=== PATIENT | female | born 1985 | race Caucasian/White ===

== ENCOUNTER 2017-11-21 15:29 | Emergency (ER) | payer SELFPAY ==
[2017-11-21 16:14] LABS: Absolute Lymphocytes (CBC) 1.7 K/uL (0.7-4.9); Absolute Monocytes 0.6 K/uL (0.1-1.3); Absolute Neutrophil 6.5 K/uL (1.8-8.0); Basophils % 0.4 % (0-1.3); Eosinophils % 1.5 % (0-4.4); Hematocrit 39.9 % (36.0-45.0); MCH 28.3 pg (27.0-35.0); MCV 83.5 fL (80-100); MPV 8.7 fL (7.6-11.3); Monocytes % 6.9 % (3.3-12.3); RBC Red Blood Cell Count 4.77 M/uL (3.86-4.86)
[2017-11-21] MEDS ORDERED: ONDANSETRON 4 MG/2 ML VIAL ONE (16:22)
[2017-11-21] MEDS ORDERED: NA CHLORIDE 0.9% 1,000 ML ONE (16:22)
[2017-11-21 16:25] LABS: Bicarbonate 27 mEq/L (21-31); Glucose Level 95 mg/dL (65-120); Potassium 3.6 mEq/L (3.6-5.0); Sodium Level 139 mEq/L (135-145)
[2017-11-21 16:26] LABS: BUN Blood Urea Nitrogen 9 mg/dL (6-20); Glomerular Filtration Rate > 90 mL/min (=/>90)
[2017-11-21 17:10] LABS: Urine Blood NEGATIVE (NEG); Urine Glucose NEGATIVE (NEG); Urine Protein NEGATIVE (NEG); Urine Specific Gravity >1.030 (1.005-1.030); Urine pH 5.5 (5.0-7.0)
--- NOTE | 2017-11-21 17:20 | EDPHYS ---
Physician Documentation [facility] Name: Duncan Michelle Age: 32 yrs Sex: Female : 1985 Arrival Date: 11/21/2017 Time: 15:32 Bed 18 Private MD: ED Physician Shree Freedman HPI: 11/21 15:48 This 32 yrs old Female presents to ER via Ambulatory with complaints of kav Vomiting. 15:55 This 32 yrs old Female presents to ER via Ambulatory with complaints of kav Vomiting. 15:55 This 32 yrs old Female presents to ER via Ambulatory with complaints of kav Vomiting daily x 1 week. 15:55 The patient presents to the emergency department with nausea, vomiting, 1 times today. kav Onset: The symptoms/episode began/occurred acutely, 7 day(s) ago. Possible causes: . The symptoms are aggravated by nothing. The symptoms are alleviated by nothing. Associated signs and symptoms: Pertinent positives: nausea, vomiting, Pertinent negatives: abdominal pain, anorexia, belching, constipation, diarrhea, dysuria, fever, flatulence, GI bleeding, hematuria, vaginal discharge. Severity of symptoms: At their worst the symptoms were mild just prior to arrival. The patient has not experienced similar symptoms in the past. The patient has not recently seen a physician. patient presents with chief c/o acute onset of nausea/vomiting x 7 days. last at today at 1:00 pm. reports vomit x 1 today. 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 - Family history:: not pertinent. - Social history:: Smoking status: Patient/guardian denies using tobacco. - Hospitalizations: : No recent hospitalization is reported. ROS: 15:58 Constitutional: Negative for fever, chills, and weight loss, Eyes: Negative for injury, kav pain, redness, and discharge, ENT: Negative for injury, pain, and discharge, Neck: Negative for injury, pain, and swelling, Cardiovascular: Negative for chest pain, palpitations, and edema, Respiratory: Negative for shortness of breath, cough, wheezing, and pleuritic chest pain, Back: Negative for injury and pain, : Negative for injury, bleeding, discharge, and swelling, MS/Extremity: Negative for injury and deformity, Skin: Negative for injury, rash, and discoloration, Neuro: Negative for headache, weakness, numbness, tingling, and seizure, Psych: Negative for depression, anxiety, suicide ideation, homicidal ideation, and hallucinations, Allergy/Immunology: Negative for hives, rash, and allergies, Endocrine: Negative for neck swelling, polydipsia, polyuria, polyphagia, and marked weight changes, Hematologic/Lymphatic: Negative for swollen nodes, abnormal bleeding, and unusual bruising. 15:58 Abdomen/GI: Positive for nausea and vomiting. Exam: 15:58 Constitutional: This is a well developed, well nourished patient who is awake, alert, kav and in no acute distress. Head/Face: Normocephalic, atraumatic. Eyes: Pupils equal round and reactive to light, extra-ocular motions intact. Lids and lashes normal. Conjunctiva and sclera are non-icteric and not injected. Cornea within normal limits. Periorbital areas with no swelling, redness, or edema. ENT: Nares patent. No nasal discharge, no septal abnormalities noted. Tympanic membranes are normal and external auditory canals are clear. Oropharynx with no redness, swelling, or masses, exudates, or evidence of obstruction, uvula midline. Mucous membranes moist. Neck: Trachea midline, no thyromegaly or masses palpated, and no cervical lymphadenopathy. Supple, full range of motion without nuchal rigidity, or vertebral point tenderness. No Meningismus. Chest/axilla: Normal chest wall appearance and motion. Nontender with no deformity. No lesions are appreciated. Cardiovascular: Regular rate and rhythm with a normal S1 and S2. No gallops, murmurs, or rubs. Normal PMI, no JVD. No pulse deficits. Respiratory: Lungs have equal breath sounds bilaterally, clear to auscultation and percussion. No rales, rhonchi or wheezes noted. No increased work of breathing, no retractions or nasal flaring. Back: No spinal tenderness. No costovertebral tenderness. Full range of motion. Skin: Warm, dry with normal turgor. Normal color with no rashes, no lesions, and no evidence of cellulitis. MS/ Extremity: Pulses equal, no cyanosis. Neurovascular intact. Full, normal range of motion. Neuro: Awake and alert, GCS 15, oriented to person, place, time, and situation. Cranial nerves II-XII grossly intact. Motor strength 5/5 in all extremities. Sensory grossly intact. Cerebellar exam normal. Normal gait. Psych: Awake, alert, with orientation to person, place and time. Behavior, mood, and affect are within normal limits. 15:58 Abdomen/GI: Inspection: abdomen appears normal, Bowel sounds: normal, in all quadrants, Palpation: abdomen is soft and non-tender, in all quadrants. Vital Signs: 15:45 BP 99 / 70; Pulse 81; Resp 18; Temp 97.6(O); Pulse Ox 98% on R/A; Weight 68.04 kg; hj Height 5 ft. 1 in. (154.94 cm); Pain 5/10; 16:45 BP 94 / 66; Pulse 84; Resp 18; Pulse Ox 98% on R/A; Pain 5/10; em 17:57 BP 106 / 78; Pulse 77; Resp 18; Pulse Ox 99% on R/A; Pain 0/10; em 15:45 Body Mass Index 28.34 (68.04 kg, 154.94 cm) MDM: 15:48 Patient medically screened. [facility] 17:18 Data reviewed: vital signs, nurses notes, lab test result(s). [facility] 11/21 15:55 Order name: Basic Metabolic Panel [facility] 11/21 15:55 Order name: CBC with Diff [facility] 11/21 16:03 Order name: Urine Culture [facility] 11/21 16:16 Order name: CBC with Automated Diff; Complete Time: 16:58 [facility] 11/21 16:58 Interpretation: Within normal limits. [facility] 11/21 15:47 Order name: Urine Test (obtain specimen); Complete Time: 16:15 snw 11/21 16:17 Order name: Urine Dipstick--Ancillary (enter results) nd 11/21 16:17 Order name: Urine --Ancillary (enter results) nd 11/21 16:26 Order name: Basic Metabolic Panel; Complete Time: 16:58 [facility] 11/21 17:10 Order name: Urine --Ancillary; Complete Time: 17:17 EDRI 11/21 17:17 Interpretation: Normal except: USPGR >1.030. [facility] 11/21 17:10 Order name: Urine Dipstick-Ancillary; Complete Time: 17:17 [facility] 11/21 17:17 Interpretation: Within normal limits. [facility] 11/21 15:47 Order name: Urine Dipstick-Ancillary (obtain specimen); Complete Time: 16:15 sn 11/21 15:55 Order name: IV Saline Lock; Complete Time: 16:15 ka 11/21 15:55 Order name: Labs collected and sent; Complete Time: 16:15 [facility] 11/21 15:55 Order name: Urine Dipstick-Ancillary (obtain specimen); Complete Time: 16:15 ka Administered Medications: 16:14 Drug: NS 0.9% 1000 ml Route: IV; Rate: 1 bolus; Site: left antecubital; em 17:15 Follow up: IV Status: Completed infusion; IV Intake: 1000ml em 16:16 Drug: Zofran 4 mg Route: IVP; Site: left antecubital; iw 17:33 Follow up: Response: No adverse reaction; Nausea is decreased em Disposition: 11/22 07:20 Co-signature as Attending Physician, Shree Freedman MD I agree with the assessment and kdr plan of care. Disposition: 11/21/17 17:20 Discharged to Home. Impression: Other viral enteritis. - Condition is Stable. - Discharge Instructions: Food Choices to Help Relieve Diarrhea, Adult, Viral Gastroenteritis. - Prescriptions for Zofran 4 mg Oral Tablet - take 1 tablet by ORAL route every 12 hours As needed; 20 tablet. - Medication Reconciliation Form, Thank You Letter, Antibiotic Education, Prescription Opioid Use form. - Follow up: Private Physician; When: 1 - 2 days; Reason: If symptoms return. - Problem is new. - Symptoms have improved. - Notes: Ensure adequate hydration Signatures: Dispatcher [employer] [facility] Shree Freedman MD MD kdr Therrien, Shelly, TRAVELING STOREKEEPER-C TRAVELING STOREKEEPER-Csnw Sisi Quintanilla FNP TRAVELING STOREKEEPER kav Roberto, Noe, RESEARCH CONTRACTS SUPERVISOR RESEARCH CONTRACTS SUPERVISOR em Tasia Guerra RN RN Shayne Pham RN RN Corrections: (The following items were deleted from the chart) 11/21 16:02 15:55 Urine Test ordered. augusto casas 16:59 16:58 Within normal limits. augusto casas
--- NOTE | 2017-11-21 17:20 | ER ---
Nurse's Notes [facility] Name: Duncan Michelle Age: 32 yrs Sex: Female : 1985 Arrival Date: 11/21/2017 Time: 15:32 Bed 18 Private MD: Diagnosis: Other viral enteritis Presentation: 11/21 15:43 Presenting complaint: Patient states: farideh been vomiting for a week; reports abd pain; hj denies fever and chills;. Transition of care: patient was not received from another setting of care. Onset of symptoms was November 21, 2017. Care prior to arrival: None. 15:43 Method Of Arrival: Ambulatory hj 15:43 Acuity: DESIRAE 3 hj Triage Assessment: 15:45 General: Appears in no apparent distress. uncomfortable, Behavior is calm, cooperative, hj appropriate for age. Pain: Complains of pain in abdomen. GI: Reports lower abdominal pain, upper abdominal pain, nausea, vomiting. 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 - Family history:: not pertinent. - Social history:: Smoking status: Patient/guardian denies using tobacco. - Hospitalizations: : No recent hospitalization is reported. Screenin:01 Abuse screen: Denies threats or abuse. Nutritional screening: No deficits noted. em Tuberculosis screening: No symptoms or risk factors identified. Fall Risk None identified. Assessment: 15:46 GI: Abdomen is non-distended, obese. hj 16:01 General: Appears in no apparent distress. comfortable, Behavior is calm, cooperative, em appropriate for age. General: Reports nausea and vomiting for 5 days Denies fever. Pain: Complains of pain in abdomen Pain does not radiate. Pain currently is 5 out of 10 on a pain scale. Quality of pain is described as crampy. Neuro: Level of Consciousness is awake, alert, obeys commands, Oriented to person, place, time, situation. Cardiovascular: Capillary refill < 3 seconds Patient's skin is warm and dry. Respiratory: Airway is patent Respiratory effort is even, unlabored, Respiratory pattern is regular, symmetrical. GI: Abdomen is round non-distended, Bowel sounds present X 4 quads. Abd is soft X 4 quads Abdomen is tender to palpation X 4 quads. Reports nausea, vomiting, Patient currently denies diarrhea. : Urine is clear. EENT: No signs and/or symptoms were reported regarding the EENT system. Derm: Skin is intact, Skin is pink, warm \T\ dry. Musculoskeletal: Range of motion: intact in all extremities. 16:10 Reassessment: Patient appears in no apparent distress at this time. I agree with above iw assessment from Noe Mejia LVN. 17:00 Reassessment: Patient appears in no apparent distress at this time. Patient and/or em family updated on plan of care and expected duration. Pain level reassessed. Patient is alert, oriented x 3, equal unlabored respirations, skin warm/dry/pink. 17:55 Reassessment: Patient appears in no apparent distress at this time. Patient and/or em family updated on plan of care and expected duration. Pain level reassessed. Patient is alert, oriented x 3, equal unlabored respirations, skin warm/dry/pink. Patient states feeling better. Patient states symptoms have improved. Vital Signs: 15:45 BP 99 / 70; Pulse 81; Resp 18; Temp 97.6(O); Pulse Ox 98% on R/A; Weight 68.04 kg; hj Height 5 ft. 1 in. (154.94 cm); Pain 5/10; 16:45 BP 94 / 66; Pulse 84; Resp 18; Pulse Ox 98% on R/A; Pain 5/10; em 17:57 BP 106 / 78; Pulse 77; Resp 18; Pulse Ox 99% on R/A; Pain 0/10; em 15:45 Body Mass Index 28.34 (68.04 kg, 154.94 cm) ED Course: 15:32 Patient arrived in ED. rg4 15:44 Triage completed. hj 15:46 Arm band placed on left wrist. hj 15:48 Sisi Quintanilla FNP is PHCP. kav 15:48 Shree Freedman MD is Attending Physician. kav 15:58 Noe Mejia LVN is Primary Nurse. em 16:01 Patient has correct armband on for positive identification. Bed in low position. Call em light in reach. Side rails up X2. 16:01 No provider procedures requiring assistance completed. em 17:57 IV discontinued, intact, bleeding controlled, No redness/swelling at site. Pressure em dressing applied. Administered Medications: 16:14 Drug: NS 0.9% 1000 ml Route: IV; Rate: 1 bolus; Site: left antecubital; em 17:15 Follow up: IV Status: Completed infusion; IV Intake: 1000ml em 16:16 Drug: Zofran 4 mg Route: IVP; Site: left antecubital; iw 17:33 Follow up: Response: No adverse reaction; Nausea is decreased em Intake: 17:15 IV: 1000ml; Total: 1000ml. em Outcome: 17:20 Discharge ordered by MD. kav 17:57 Discharged to home ambulatory. em 17:57 Condition: good 17:57 Discharge instructions given to patient, Instructed on discharge instructions, follow up and referral plans. medication usage, Demonstrated understanding of instructions, follow-up care, medications, Prescriptions given X 1. 17:58 Patient left the ED. em Signatures: Sisi Quintanilla, FLAT HAMMERER FLAT HAMMERER Noe Scherer, COMMUTATOR UNDERCUTTER COMMUTATOR UNDERCUTTER em Tasia Guerra, JOVANNY RN iw Shayne Pham, JOVANNY RN [place] rg4 Corrections: (The following items were deleted from the chart) 15:47 15:45 Pulse 81bpm; Resp 18bpm; Pulse Ox 98% RA; Temp 97.6F Oral; 68.04 kg; Height 5 ft. hj 1 in.; BMI: 28.3; Pain 5/10; hj
== END 2017-11-21 17:58 | disposition home or self-care (01) ==
LOC: ER 15:29
DX: A08.39 Other viral enteritis (principal); Z88.1 Allergy status to other antibiotic agents; Z88.2 Allergy status to sulfonamides
CPT/HCPCS: 36415; 80048; 81003; 81025; 85025; 96361; 96374; 99283; J2405; J7030

== ENCOUNTER 2018-01-05 15:01 | Emergency (ER) | payer SELFPAY ==
--- NOTE | 2018-01-05 15:48 | ER ---
Nurse's Notes [facility] Name: Duncan Michelle Age: 32 yrs Sex: Female : 1985 Arrival Date: 01/05/2018 Time: 15:05 Bed 20 Private MD: Diagnosis: Lateral epicondylitis, right elbow Presentation: 01/05 15:17 Presenting complaint: Patient states: "there is some swelling on my right elbow and aa5 I've been seen here for it before but I don't have a primary doctor so I can't follow up". Transition of care: patient was not received from another setting of care. Onset of symptoms was November 2017. Initial Sepsis Screen: Does the patient meet any 2 criteria? No. Patient's initial sepsis screen is negative. Does the patient have a suspected source of infection? No. Patient's initial sepsis screen is negative. Care prior to arrival: None. 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 - Social history:: Smoking status: Patient/guardian denies using tobacco. - Family history:: not pertinent. - Hospitalizations: : No recent hospitalization is reported. Screenin:35 Abuse screen: Denies threats or abuse. Denies injuries from another. Nutritional jl7 screening: No deficits noted. Tuberculosis screening: No symptoms or risk factors identified. Fall Risk None identified. Assessment: 15:30 General: Appears in no apparent distress. uncomfortable, Behavior is calm, cooperative, jl7 appropriate for age. Pain: Complains of pain in right elbow Pain currently is 5 out of 10 on a pain scale. Quality of pain is described as throbbing, Pain began 2-3 days ago. Is continuous. Neuro: Level of Consciousness is awake, alert, obeys commands, Oriented to person, place, time, situation. Cardiovascular: Patient's skin is warm and dry. Respiratory: Airway is patent Respiratory effort is even, unlabored, Respiratory pattern is regular, symmetrical. GI: No signs and/or symptoms were reported involving the gastrointestinal system. : No signs and/or symptoms were reported regarding the genitourinary system. EENT: No signs and/or symptoms were reported regarding the EENT system. Derm: Skin is pink, warm \\T\\ dry. Musculoskeletal: Range of motion: intact in all extremities, Swelling present in right elbow. Vital Signs: 15:18 BP 104 / 66; Pulse 83; Resp 16 S; Temp 97.9(TE); Pulse Ox 98% on R/A; Weight 68.04 kg aa5 (R); Height 5 ft. 1 in. (154.94 cm) (R); Pain 5/10; 15:18 Body Mass Index 28.34 (68.04 kg, 154.94 cm) aa5 ED Course: 15:05 Patient arrived in ED. sb2 15:18 Triage completed. aa5 15:18 Arm band placed on. aa5 15:19 Andre Crane MD is Attending Physician. rn 15:28 Lou Corral RN is Primary Nurse. jl7 15:35 Patient has correct armband on for positive identification. Bed in low position. Call jl7 light in reach. Side rails up X 1. Pulse ox on. NIBP on. 16:00 No provider procedures requiring assistance completed. Patient did not have IV access jl7 during this emergency room visit. Administered Medications: No medications were administered Outcome: 15:48 Discharge ordered by . rn 16:00 Discharged to home ambulatory. jl7 16:00 Condition: stable 16:00 Discharge instructions given to patient, Instructed on discharge instructions, follow up and referral plans. Demonstrated understanding of instructions, follow-up care. 16:01 Patient left the ED. jl7 Signatures: Andre Crane MD MD rn Calderon, Audri, RN RN aa5 Lou Corral RN RN jl7 Charlotte Baumann sb2 Corrections: (The following items were deleted from the chart) 16:00 12:25 General: Appears in no apparent distress. uncomfortable, Behavior is calm, jl7 cooperative, appropriate for age, jl7 16:00 12:25 Pain: Complains of pain in right elbow Pain currently is 5 out of 10 on a pain jl7 scale. Quality of pain is described as throbbing, Pain began 2-3 days ago. Is continuous, jl7 16:00 12:25 Neuro: Level of Consciousness is awake, alert, obeys commands, Oriented to jl7 person, place, time, situation, [facility] 12: Cardiovascular: Patient's skin is warm and dry. 7 [facility] 12:25 Respiratory: Airway is patent Respiratory effort is even, unlabored, Respiratory [facility] pattern is regular, symmetrical, [facility] 12: GI: No signs and/or symptoms were reported involving the gastrointestinal system. [place] [id number] 12: : No signs and/or symptoms were reported regarding the genitourinary system. 7j 12:25 EENT: No signs and/or symptoms were reported regarding the EENT system. [place] [id number] 12: Derm: Skin is pink, warm \\T\\ dry. [place] [id number] 12:25 Musculoskeletal: Range of motion: intact in all extremities, Swelling present in [facility] right elbow [facility]
--- NOTE | 2018-01-05 15:48 | EDPHYS ---
Physician Documentation [facility] Name: Duncan Michelle Age: 32 yrs Sex: Female : 1985 Arrival Date: 01/05/2018 Time: 15:05 Bed 20 Private MD: ED Physician Andre Crane HPI: 01/05 15:46 This 32 yrs old Female presents to ER via Ambulatory with complaints of Elbow rn Injury. 15:46 The patient or guardian complains of pain. The complaints affect the right elbow. rn Onset: The symptoms/episode began/occurred 2 month(s) ago. Modifying factors: The symptoms are alleviated by nothing. the symptoms are aggravated by movement, lifting weight, bending arm. Severity of symptoms: At their worst the symptoms were mild, in the emergency department the symptoms are unchanged. The patient has experienced similar episodes in the past. Reports months of right elbow pain, worse with movement, is right handed and works with repetitive motions, no trauma, no fever, no IV drug use.. 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 - Social history:: Smoking status: Patient/guardian denies using tobacco. - Family history:: not pertinent. - Hospitalizations: : No recent hospitalization is reported. ROS: 15:46 Constitutional: Negative for fever, chills, and weight loss, Eyes: Negative for injury, rn pain, redness, and discharge, Cardiovascular: Negative for chest pain, palpitations, and edema, Respiratory: Negative for shortness of breath, cough, wheezing, and pleuritic chest pain, Abdomen/GI: Negative for abdominal pain, nausea, vomiting, diarrhea, and constipation, MS/Extremity: Negative for injury and deformity, Skin: Negative for injury, rash, and discoloration, Neuro: Negative for headache, weakness, numbness, tingling, and seizure. Exam: 15:46 Constitutional: This is a well developed, well nourished patient who is awake, alert, rn and in no acute distress. MS/ Extremity: Pulses equal, no cyanosis. Neurovascular intact. Full, normal range of motion. Equal circumference. + mild tenderness at lateral condyle. Vital Signs: 15:18 BP 104 / 66; Pulse 83; Resp 16 S; Temp 97.9(TE); Pulse Ox 98% on R/A; Weight 68.04 kg aa5 (R); Height 5 ft. 1 in. (154.94 cm) (R); Pain 5/10; 15:18 Body Mass Index 28.34 (68.04 kg, 154.94 cm) aa5 MDM: 15:19 Patient medically screened. rn 15:46 Differential diagnosis: tendonitis. Data reviewed: vital signs, nurses notes, and as a rn result, I will discharge patient. Counseling: I had a detailed discussion with the patient and/or guardian regarding: the historical points, exam findings, and any diagnostic results supporting the discharge/admit diagnosis, the need for outpatient follow up, to return to the emergency department if symptoms worsen or persist or if there are any questions or concerns that arise at home. Special discussion: I discussed with the patient/guardian in detail that at this point there is no indication for admission to the hospital. It is understood, however, that if the symptoms persist or worsen the patient needs to return immediately for re-evaluation. Administered Medications: No medications were administered Disposition: 01/05/18 15:48 Discharged to Home. Impression: Lateral epicondylitis, right elbow. - Condition is Stable. - Discharge Instructions: Tennis Elbow, Tendinitis. - Medication Reconciliation Form, Thank You Letter, Antibiotic Education, Prescription Opioid Use form. - Follow up: Private Physician; When: As needed; Reason: Recheck today's complaints, Re-evaluation by your physician. - Problem is chronic. - Symptoms are unchanged. Signatures: Andre Crane MD MD rn Calderon, Audri RN RN aa5 Lou Corral RN RN jl7 Corrections: (The following items were deleted from the chart) 16:01 15:48 01/05/2018 15:48 Discharged to Home. Impression: Lateral epicondylitis, right jl7 elbow. Condition is Stable. Forms are Medication Reconciliation Form, Thank You Letter, Antibiotic Education, Prescription Opioid Use. Follow up: Private Physician; When: As needed; Reason: Recheck today's complaints, Re-evaluation by your physician. Problem is chronic. Symptoms are unchanged. rn
== END 2018-01-05 16:01 | disposition home or self-care (01) ==
LOC: ER 15:01
DX: M77.11 Lateral epicondylitis, right elbow (principal); Z88.1 Allergy status to other antibiotic agents; Z88.2 Allergy status to sulfonamides
CPT/HCPCS: 99283

== ENCOUNTER 2018-02-11 08:42 | Emergency (ER) | payer SELFPAY ==
--- NOTE | 2018-02-11 09:38 | EDPHYS ---
Physician Documentation [facility] Name: Duncan Michelle Age: 32 yrs Sex: Female : 1985 Arrival Date: 02/11/2018 Time: 08:44 Bed 18 Private MD: ED Physician Joseph Jha HPI: 02/11 09:32 This 32 yrs old Female presents to ER via Ambulatory with complaints of hector Drainage From Ear. 09:32 The patient presents with drainage, pain. The complaints affect the right ear. Onset: hector The symptoms/episode began/occurred 3 day(s) ago. Modifying factors: The symptoms are alleviated by nothing, the symptoms are aggravated by nothing. Associated signs and symptoms: The patient has no apparent associated signs or symptoms. Severity of symptoms: At their worst the symptoms were. The patient has not experienced similar symptoms in the past. Historical: - Allergies: 08:58 Bactrim; ss - Home Meds: 08:58 None [Active]; ss - PMHx: 08:58 Asthma; ss - PSHx: 08:58 Ear Tubes; exploratory lap "to check fallopian tubes"; ss - Immunization history:: Adult Immunizations up to date. - Social history:: Smoking status: Patient/guardian denies using tobacco. - Ebola Screening: : Patient denies exposure to infectious person Patient denies travel to an Ebola-affected area in the 21 days before illness onset. - Family history:: not pertinent. ROS: 09:32 Constitutional: Negative for fever, chills, and weight loss, Eyes: Negative for injury, hector pain, redness, and discharge, Neck: Negative for injury, pain, and swelling, Cardiovascular: Negative for chest pain, palpitations, and edema, Respiratory: Negative for shortness of breath, cough, wheezing, and pleuritic chest pain, Abdomen/GI: Negative for abdominal pain, nausea, vomiting, diarrhea, and constipation, Back: Negative for injury and pain, : Negative for injury, bleeding, discharge, and swelling, MS/Extremity: Negative for injury and deformity, Skin: Negative for injury, rash, and discoloration, Neuro: Negative for headache, weakness, numbness, tingling, and seizure. 09:32 ENT: Positive for drainage from ear(s), ear pain. Exam: 09:32 Constitutional: This is a well developed, well nourished patient who is awake, alert, hector and in no acute distress. Head/Face: Normocephalic, atraumatic. Eyes: Pupils equal round and reactive to light, extra-ocular motions intact. Lids and lashes normal. Conjunctiva and sclera are non-icteric and not injected. Cornea within normal limits. Periorbital areas with no swelling, redness, or edema. Neck: Trachea midline, no thyromegaly or masses palpated, and no cervical lymphadenopathy. Supple, full range of motion without nuchal rigidity, or vertebral point tenderness. No Meningismus. Chest/axilla: Normal chest wall appearance and motion. Nontender with no deformity. No lesions are appreciated. Cardiovascular: Regular rate and rhythm with a normal S1 and S2. No gallops, murmurs, or rubs. Normal PMI, no JVD. No pulse deficits. Respiratory: Lungs have equal breath sounds bilaterally, clear to auscultation and percussion. No rales, rhonchi or wheezes noted. No increased work of breathing, no retractions or nasal flaring. Abdomen/GI: Soft, non-tender, with normal bowel sounds. No distension or tympany. No guarding or rebound. No evidence of tenderness throughout. Back: No spinal tenderness. No costovertebral tenderness. Full range of motion. Pelvic Exam: Normal external genitalia. Speculum exam with closed cervical os, no discharge or bleeding noted. Bimanual exam with normal adnexa, no adnexal or cervical motion tenderness. Normal uterus. Female : Normal external genitalia. Skin: Warm, dry with normal turgor. Normal color with no rashes, no lesions, and no evidence of cellulitis. MS/ Extremity: Pulses equal, no cyanosis. Neurovascular intact. Full, normal range of motion. Neuro: Awake and alert, GCS 15, oriented to person, place, time, and situation. Cranial nerves II-XII grossly intact. Motor strength 5/5 in all extremities. Sensory grossly intact. Cerebellar exam normal. Normal gait. Psych: Awake, alert, with orientation to person, place and time. Behavior, mood, and affect are within normal limits. 09:32 ENT: TM's: dullness, erythema, loss of bony landmarks, rupture, on the right, with purulent discharge. Vital Signs: 08:58 BP 105 / 66; Pulse 76; Resp 16; Temp 97.8(TE); Pulse Ox 97% on R/A; Weight 68.04 kg; ss Height 5 ft. 1 in. (154.94 cm); Pain 0/10; 08:58 Body Mass Index 28.34 (68.04 kg, 154.94 cm) ss MDM: 08:52 Patient medically screened. [facility] 09:32 Data reviewed: vital signs, nurses notes. [facility] Administered Medications: 10:14 Drug: Augmentin 875 mg Route: PO; aj1 10:27 Follow up: Response: No adverse reaction aj1 10:14 Drug: Rocephin (cefTRIAXone) 1 grams Route: IM; Site: left gluteus; aj1 10:27 Follow up: Response: No adverse reaction aj1 Disposition: 02/11/18 09:38 Discharged to Home. Impression: Otitis externa, Otitis media, unspecified, right ear. - Condition is Stable. - Discharge Instructions: Ear Drops, Adult, Otitis Media, Adult, Otitis Media, Adult, [id number], Ear Drops, Adult, [id number]. - Prescriptions for Augmentin 875- 125 mg Oral Tablet - take 1 tablet by ORAL route every 12 hours for 10 days; 20 tablet. Cortisporin- TC 3.3-3-10-0.5 mg/mL Otic Suspension - instill 4 drop by OTIC route every 6 hours; 1 bottle. Tylenol- Codeine #3 300-30 mg Oral Tablet - take 2 tablet by ORAL route every 6 hours As needed; 30 tablet. - Medication Reconciliation Form, Thank You Letter, Antibiotic Education, Prescription Opioid Use form. - Follow up: Private Physician; When: 2 - 3 days; Reason: Recheck today's complaints, Continuance of care, Re-evaluation by your physician. Follow up: Libertad Clifford MD; When: 2 - 3 days; Reason: Recheck today's complaints, Continuance of care, Re-evaluation by your physician. - Problem is new. - Symptoms have improved. Signatures: Diamond Phillips RN RN aj1 Joseph Jha MD MD cha Smirch, Shelby, RN RN ss Corrections: (The following items were deleted from the chart) 10:33 09:38 02/11/2018 09:38 Discharged to Home. Impression: Otitis externa; Otitis media, ss unspecified, right ear. Condition is Stable. Forms are Medication Reconciliation Form, Thank You Letter, Antibiotic Education, Prescription Opioid Use. Follow up: Private Physician; When: 2 - 3 days; Reason: Recheck today's complaints, Continuance of care, Re-evaluation by your physician. Follow up: Libertad Clifford; When: 2 - 3 days; Reason: Recheck today's complaints, Continuance of care, Re-evaluation by your physician. Problem is new. Symptoms have improved. hector
--- NOTE | 2018-02-11 09:38 | ER ---
Nurse's Notes [facility] Name: Duncan Michelle Age: 32 yrs Sex: Female : 1985 Arrival Date: 02/11/2018 Time: 08:44 Bed 18 Private MD: Diagnosis: Otitis externa;Otitis media, unspecified, right ear Presentation: 02/11 08:54 Presenting complaint: Patient states: brown-samantha drainage to R ear since yesterday, ss worse this AM. Denies pain/ fever. Transition of care: patient was not received from another setting of care. Onset of symptoms was February 10, 2018. Risk Assessment: Do you want to hurt yourself or someone else? Patient reports no desire to harm self or others. Initial Sepsis Screen: Does the patient meet any 2 criteria? No. Patient's initial sepsis screen is negative. Does the patient have a suspected source of infection? No. Patient's initial sepsis screen is negative. Care prior to arrival: None. 08:54 Method Of Arrival: Ambulatory ss 08:54 Acuity: DESIRAE 5 ss Historical: - Allergies: 08:58 Bactrim; ss - Home Meds: 08:58 None [Active]; ss - PMHx: 08:58 Asthma; ss - PSHx: 08:58 Ear Tubes; exploratory lap "to check fallopian tubes"; ss - Immunization history:: Adult Immunizations up to date. - Social history:: Smoking status: Patient/guardian denies using tobacco. - Ebola Screening: : Patient denies exposure to infectious person Patient denies travel to an Ebola-affected area in the 21 days before illness onset. - Family history:: not pertinent. Screenin:59 Abuse screen: Denies threats or abuse. Denies injuries from another. Nutritional aj1 screening: No deficits noted. Tuberculosis screening: No symptoms or risk factors identified. Assessment: 08:59 General: Appears in no apparent distress. comfortable, Behavior is calm, cooperative, aj1 appropriate for age. Pain: Denies pain. Neuro: Level of Consciousness is awake, alert, obeys commands. Cardiovascular: Patient's skin is warm and dry. Respiratory: Airway is patent Respiratory effort is even, unlabored, Respiratory pattern is regular, symmetrical. GI: No signs and/or symptoms were reported involving the gastrointestinal system. : No signs and/or symptoms were reported regarding the genitourinary system. EENT: Reports drainage from ear. Denies pain, fever. Derm: No signs and/or symptoms reported regarding the dermatologic system. Skin is pink, warm \\T\\ dry. normal. Musculoskeletal: No signs and/or symptoms reported regarding the musculoskeletal system. Circulation, motion, and sensation intact. Vital Signs: 08:58 BP 105 / 66; Pulse 76; Resp 16; Temp 97.8(TE); Pulse Ox 97% on R/A; Weight 68.04 kg; ss Height 5 ft. 1 in. (154.94 cm); Pain 0/10; 08:58 Body Mass Index 28.34 (68.04 kg, 154.94 cm) ED Course: 08:44 Patient arrived in ED. as 08:52 Joseph Jha MD is Attending Physician. [facility] 08:55 Triage completed. 08:58 Diamond Phillips RN is Primary Nurse. aj1 08:58 Arm band placed on right wrist. 08:59 Patient has correct armband on for positive identification. Bed in low position. Call aj1 light in reach. Side rails up X 1. 08:59 No provider procedures requiring assistance completed. aj1 09:38 Libertad Clifford MD is Referral Physician. [facility] 10:30 Patient did not have IV access during this emergency room visit. ss Administered Medications: 10:14 Drug: Augmentin 875 mg Route: PO; aj1 10:27 Follow up: Response: No adverse reaction aj1 10:14 Drug: Rocephin (cefTRIAXone) 1 grams Route: IM; Site: left gluteus; aj1 10:27 Follow up: Response: No adverse reaction aj1 Outcome: 09:38 Discharge ordered by . [facility] 10:30 Discharged to home ambulatory. 10:30 Condition: good 10:30 Discharge instructions given to patient, Instructed on discharge instructions, follow up and referral plans. medication usage, Demonstrated understanding of instructions, follow-up care, medications, Prescriptions given X 3. 10:33 Patient left the ED. Signatures: Diamond Phillips, RN RN aj1 Joseph Jha MD MD cha Martinez, Amelia as Smirch, Shelby, RN RN
[2018-02-11] MEDS ORDERED: CEFTRIAXONE 1000 MG/VIAL ONE (10:05)
[2018-02-11] MEDS ORDERED: LIDOCAINE 1% MPF 2 ML AMPULE ONE (10:06)
[2018-02-11] MEDS ORDERED: AMOX/K CLAV 875 MG TAB ONE (10:06)
== END 2018-02-11 10:33 | disposition home or self-care (01) ==
LOC: ER 08:42
DX: H60.91 Unspecified otitis externa, right ear (principal); H66.91 Otitis media, unspecified, right ear; Z88.1 Allergy status to other antibiotic agents
CPT/HCPCS: 96372; 99283; J2001

== ENCOUNTER 2018-02-23 16:30 | Emergency (ER) | payer SELFPAY ==
[2018-02-23 17:34] LABS: Absolute Lymphocytes (CBC) 1.9 K/uL (0.7-4.9); Absolute Monocytes 0.7 K/uL (0.1-1.3); Basophils % 0.5 % (0-1.3); Eosinophils % 1.7 % (0-4.4); Hematocrit 36.3 % (36.0-45.0); Lymphocytes % 19.5 % (15.3-44.8); MCH 28.1 pg (27.0-35.0); MCV 83.6 fL (80-100); MPV 8.1 fL (7.6-11.3); Monocytes % 7.5 % (3.3-12.3); RBC Red Blood Cell Count 4.34 M/uL (3.86-4.86)
[2018-02-23 17:40] LABS: Protime INR 1.04
[2018-02-23 17:53] LABS: Urine Blood 2+ (NEG); Urine Glucose NEGATIVE (NEG); Urine Protein NEGATIVE (NEG); Urine Specific Gravity >1.030 (1.005-1.030); Urine pH 5.5 (5.0-7.0)
[2018-02-23 17:53] LABS: Potassium 3.5 mmol/L (3.5-5.1)
--- NOTE | 2018-02-23 19:43 | EDPHYS ---
Physician Documentation [facility] Name: Duncan Michelle Age: 32 yrs Sex: Female : 1985 Arrival Date: 02/23/2018 Time: 16:33 Bed 28 Private MD: None, None ED Physician Shree Freedman HPI: 02/23 17:10 This 32 yrs old Female presents to ER via Ambulatory with complaints of cp Vaginal Bleeding. 17:10 The patient presents with vaginal bleeding that is with clots. cp 17:10 Onset: The symptoms/episode began/occurred 10 day(s) ago. Associated signs and cp symptoms: Pertinent negatives: dysuria, fever, urinary frequency. Severity of symptoms: in the emergency department the symptoms have improved, mildly. 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 - Social history:: Smoking status: Patient/guardian denies using tobacco, Patient/guardian denies using alcohol. - Ebola Screening: : Patient negative for fever greater than or equal to 101.5 degrees Fahrenheit, and additional compatible Ebola Virus Disease symptoms Patient denies exposure to infectious person Patient denies travel to an Ebola-affected area in the 21 days before illness onset. ROS: 17:15 Constitutional: Negative for body aches, chills, fever, poor PO intake. cp 17:15 Eyes: Negative for injury, pain, redness, and discharge. cp 17:15 ENT: Negative for drainage from ear(s), ear pain, sore throat, difficulty swallowing, difficulty handling secretions. 17:15 Cardiovascular: Negative for chest pain, edema, palpitations. 17:15 Respiratory: Negative for cough, shortness of breath, wheezing. 17:15 Abdomen/GI: Positive for abdominal cramps, Negative for nausea, vomiting, and diarrhea, black/tarry stool, rectal bleeding. 17:15 Back: Negative for radiated pain. 17:15 : Positive for vaginal bleeding, Negative for urinary symptoms. 17:15 Skin: Negative for cellulitis, rash. 17:15 Neuro: Negative for altered mental status, headache, syncope, near syncope, weakness. 17:15 All other systems are negative. Exam: 17:20 Constitutional: The patient appears in no acute distress, alert, awake, non-toxic, well cp developed, well nourished. 17:20 Head/Face: Normocephalic, atraumatic. Eyes: Pupils equal round and reactive to light, cp extra-ocular motions intact. Lids and lashes normal. Conjunctiva and sclera are non-icteric and not injected. Cornea within normal limits. Periorbital areas with no swelling, redness, or edema. ENT: Nares patent. No nasal discharge, no septal abnormalities noted. Tympanic membranes are normal and external auditory canals are clear. Oropharynx with no redness, swelling, or masses, exudates, or evidence of obstruction, uvula midline. Mucous membranes moist. Chest/axilla: Normal chest wall appearance and motion. Nontender with no deformity. No lesions are appreciated. Cardiovascular: Regular rate and rhythm with a normal S1 and S2. No gallops, murmurs, or rubs. Normal PMI, no JVD. No pulse deficits. Respiratory: Lungs have equal breath sounds bilaterally, clear to auscultation and percussion. No rales, rhonchi or wheezes noted. No increased work of breathing, no retractions or nasal flaring. 17:20 Abdomen/GI: Inspection: abdomen appears normal, Bowel sounds: active, all quadrants, Palpation: soft, in all quadrants, mild abdominal tenderness, in the right lower quadrant and left lower quadrant, rebound tenderness, is not appreciated, voluntary guarding, is not appreciated, involuntary guarding, is not appreciated. 17:20 Back: pain, is absent, ROM is normal. 17:20 Skin: cellulitis, is not appreciated, no rash present. 17:20 Neuro: Orientation: to person, place \\T\\ time. Mentation: lucid, able to follow commands, Cerebellar function: is grossly normal, Motor: moves all fours, strength is normal, Sensation: no obvious gross deficits. 18:20 : Pelvic Exam: External exam: is normal, Speculum exam: mild bleeding, no cervicitis, cp os that is closed, no tissue in cervix is seen, no tissue in vagina is seen, bimanual exam reveals cervical motion tenderness, os that is closed, uterine tenderness, right adnexal tenderness, left adnexal tenderness, no adnexal mass on right, no adnexal mass on left, Conchita, RN present. Sexual behavior: the patient is sexually active. Vital Signs: 16:37 BP 111 / 71; Pulse 76; Resp 18; Temp 97.9(TE); Pulse Ox 98% on R/A; Weight 68.04 kg; hj Height 5 ft. 1 in. (154.94 cm); Pain 3/10; 17:35 BP 109 / 71 Supine; Pulse 84 RA; rk2 17:35 BP 120 / 72 Sitting; Pulse 89; rk2 17:35 BP 124 / 76; Pulse 81; rk2 19:56 BP 131 / 86; Pulse 85; Resp 18; Pulse Ox 100% on R/A; tl3 16:37 Body Mass Index 28.34 (68.04 kg, 154.94 cm) MDM: 16:59 Patient medically screened. 17:00 Differential diagnosis: ectopic , endometriosis, menorrhea, ovarian cyst, cp pelvic inflammatory disease. 19:33 Physician consultation: Andria Gunn MD was called at 19:34, was contacted at 19:34, regarding patient's condition, outpatient follow-up, next week. 19:34 ED course: VSS. Spoke with DR Gunn who recommends repeat 48 hour beta-hcg, discharge to home with threatened miscarriage precautions and continued monitoring. 19:40 Data reviewed: vital signs, nurses notes, lab test result(s), radiologic studies, plain cp films, and as a result, I will discharge patient. 02/23 17:07 Order name: Quantitative Hcg; Complete Time: 18:04 02/23 17:07 Order name: Basic Metabolic Panel; Complete Time: 18:04 02/23 17:07 Order name: CBC with Diff; Complete Time: 18:04 02/23 18:24 Interpretation: Reviewed. 02/23 17:07 Order name: Type And Screen; Complete Time: 18:24 02/23 18:24 Interpretation: Reviewed. 02/23 17:07 Order name: PT-INR; Complete Time: 18:04 02/23 17:07 Order name: Ptt, Activated; Complete Time: 18:04 cp 02/23 17:07 Order name: Orthostatics; Complete Time: 17:39 cp 02/23 17:07 Order name: Urine Dipstick-Ancillary (obtain specimen); Complete Time: 17:08 cp 02/23 17:07 Order name: Urine Test (obtain specimen); Complete Time: 17:08 cp 02/23 17:07 Order name: IV Saline Lock; Complete Time: 17:27 cp 02/23 17:07 Order name: Labs collected and sent; Complete Time: 17:27 cp 02/23 17:18 Order name: Urine Dipstick--Ancillary (enter results); Complete Time: 18:04 sp 02/23 17:18 Order name: Test Urine - POC; Complete Time: 18:04 sp 02/23 18:05 Order name: US Transvaginal Ob 02/23 17:07 Order name: NPO; Complete Time: 17:08 cp 02/23 17:07 Order name: Pelvic Exam Setup; Complete Time: 17:42 cp Administered Medications: No medications were administered Disposition: 02/23/18 19:43 Discharged to Home. Impression: Threatened . - Condition is Stable. - Discharge Instructions: Medicines During , Threatened Miscarriage, Pelvic Rest. - Prescriptions for Vitamin 27- 0.8 mg Oral Tablet - take 1 tablet by ORAL route once daily; 60 tablet. - Medication Reconciliation Form, Thank You Letter, Antibiotic Education, Prescription Opioid Use, Work release form form. - Follow up: Andria Gunn MD; When: 48 Hours; Reason: Repeat Beta-HCG (48 Hours), or return to emergency department. - Problem is new. - Symptoms have improved. Addendum: 02/25/2018 23:03 Co-signature as Attending Physician, Shree Freedman MD I agree with the assessment and k dr plan of care. Signatures: Dispatcher [employer] EDNH Shree Freedman MD MD kdr Shayne Pham RN RN Joseph Salas PA PA cp Lowrey, Tammy, RN RN tl3 Corrections: (The following items were deleted from the chart) 02/23 20:05 19:43 02/23/2018 19:43 Discharged to Home. Impression: Threatened . Condition tl3 is Stable. Forms are Medication Reconciliation Form, Thank You Letter, Antibiotic Education, Prescription Opioid Use. Follow up: Andria Gunn; When: 48 Hours; Reason: Repeat Beta-HCG (48 Hours), or return to emergency department. Problem is new. Symptoms have improved. cp
--- NOTE | 2018-02-23 19:43 | ER ---
Nurse's Notes [facility] Name: Duncan Michelle Age: 32 yrs Sex: Female : 1985 Arrival Date: 02/23/2018 Time: 16:33 Bed 28 Private MD: None, None Diagnosis: Threatened Presentation: 02/23 16:33 Presenting complaint: Patient states: my period was late like a week late, of last last week started my period and farideh been bleeding for 10 days now, now my stomach is cramping; reports nausea; reports bright red with clots, heavy flow; denies fever and chills;. Transition of care: patient was not received from another setting of care. Onset of symptoms was February 23, 2018. Risk Assessment: Do you want to hurt yourself or someone else? Patient reports no desire to harm self or others. Initial Sepsis Screen: Does the patient meet any 2 criteria? No. Patient's initial sepsis screen is negative. Does the patient have a suspected source of infection? No. Patient's initial sepsis screen is negative. Care prior to arrival: None. 16:33 Method Of Arrival: Ambulatory 16:33 Acuity: DESIRAE 3 hj Triage Assessment: 16:36 General: Appears in no apparent distress. uncomfortable, Behavior is calm, cooperative, hj appropriate for age. Pain: Complains of pain in abdomen Pain currently is 3 out of 10 on a pain scale. : Reports vaginal bleeding that is bright red, with clots, heavy flow. 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 - Social history:: Smoking status: Patient/guardian denies using tobacco, Patient/guardian denies using alcohol. - Ebola Screening: : Patient negative for fever greater than or equal to 101.5 degrees Fahrenheit, and additional compatible Ebola Virus Disease symptoms Patient denies exposure to infectious person Patient denies travel to an Ebola-affected area in the 21 days before illness onset. Screenin:37 Abuse screen: Denies threats or abuse. Denies injuries from another. Nutritional hj screening: No deficits noted. Tuberculosis screening: No symptoms or risk factors identified. Fall Risk None identified. Assessment: 16:38 : Vaginal discharge is. hj 17:30 Reassessment: Patient appears in no apparent distress at this time. No changes from rk2 previously documented assessment. Patient and/or family updated on plan of care and expected duration. Pain level reassessed. 18:20 Reassessment: Pelvic exam completed by provider. rk2 18:25 Reassessment: Pt. taken to US. rk2 18:59 Reassessment: Returned from US. rk2 19:56 Reassessment: Patient appears in no apparent distress at this time. No changes from tl3 previously documented assessment. Patient and/or family updated on plan of care and expected duration. Pain level reassessed. Rick Mandujano at bedside discussing POC. Vital Signs: 16:37 BP 111 / 71; Pulse 76; Resp 18; Temp 97.9(TE); Pulse Ox 98% on R/A; Weight 68.04 kg; hj Height 5 ft. 1 in. (154.94 cm); Pain 3/10; 17:35 BP 109 / 71 Supine; Pulse 84 RA; rk2 17:35 BP 120 / 72 Sitting; Pulse 89; rk2 17:35 BP 124 / 76; Pulse 81; rk2 19:56 BP 131 / 86; Pulse 85; Resp 18; Pulse Ox 100% on R/A; tl3 16:37 Body Mass Index 28.34 (68.04 kg, 154.94 cm) ED Course: 16:33 Patient arrived in ED. mr 16:33 None, None is Private Physician. mr 16:36 Triage completed. hj 16:37 Arm band placed on right wrist. hj 16:38 Patient has correct armband on for positive identification. Placed in gown. Bed in low hj position. Call light in reach. Side rails up X 1. 16:44 Conchita Nesbitt, JOVANNY is Primary Nurse. rk2 16:59 Joseph Mandujano PA is PHCP. cp 16:59 Shree Freedman MD is Attending Physician. cp 18:21 Assist provider with pelvic exam:. rk2 18:40 Ultrasound completed. Patient tolerated well. Notified SENIOR APPLICATIONS ANALYST/PA PAGE. sg3 18:40 US Transvaginal Ob Sent. rk2 19:42 Andria Gunn MD is Referral Physician. cp 19:56 IV discontinued, intact, bleeding controlled, No redness/swelling at site. Pressure tl3 dressing applied. Administered Medications: No medications were administered Outcome: 19:43 Discharge ordered by MD. cp 19:56 Discharged to home ambulatory. tl3 19:56 Condition: stable 19:56 Discharge instructions given to patient, Instructed on discharge instructions, follow up and referral plans. medication usage, Demonstrated understanding of instructions, follow-up care, medications, Prescriptions given X 1. 20:05 Patient left the ED. tl3 Signatures: Dispatcher [employer] EDMO Anastasia Bailey Henry, RN RN hj Joseph Mandujano PA PA cp Godinez, Sarah sg3 Conchita Nesbitt RN RN rk2 Shirin Morales, RN RN tl3 Corrections: (The following items were deleted from the chart) 16:39 16:37 Pulse 76bpm; Resp 18bpm; Pulse Ox 98% RA; Temp 97.9F Temporal; 68.04 kg; Height 5 hj ft. 1 in.; BMI: 28.3; Pain 3/10; hj 18:58 18:58 In radiology for Transvaginal Ob+US.MARCI.LIS. EDMO sg3
--- NOTE | 2018-02-23 19:50 | RAD REPORT ---
EXAM DESCRIPTION: US - Transvaginal OB - 02/23/2018 6:58 pm CLINICAL HISTORY: VAGINAL BLEEDING COMPARISON: Transvaginal Study Probe dated 07/11/2016; Transvaginal Study Probe dated 05/11/2016 FINDINGS: The uterus measures 6.9 x 4.5 x 3.7 cm. Endometrium measures 4 mm and is heterogenous in a ppearance and no normal IUP components are visualized. Mild heterogenous material seen in the lower u terine segment/cervix. These may represent blood products. Mild to moderate free fluid is seen in the pelvis. Maternal adnexa showed no worrisome finding. Both ovaries are normal in size, shape and echotexture w ith normal Doppler blood flow. IMPRESSION: In the setting of an elevated HCG, the above findings with indicate a of unkno wn location.Advise short interval follow-up serial HCG measurements and follow-up ultrasound in 7-10 days.
== END 2018-02-23 20:05 | disposition home or self-care (01) ==
LOC: ER 16:30
DX: O20.0 Threatened abortion (principal); J45.909 Unspecified asthma, uncomplicated; Z88.1 Allergy status to other antibiotic agents; Z88.2 Allergy status to sulfonamides; Z3A.00 Weeks of gestation of pregnancy not specified
CPT/HCPCS: 36415; 76817; 80048; 81003; 81025; 84702; 85025; 85610; 85730; 86850; 86900; 86901; 99283

== ENCOUNTER 2018-02-25 15:08 | Emergency (ER) | payer SELFPAY ==
--- NOTE | 2018-02-25 16:40 | ER ---
Nurse's Notes [facility] Name: Duncan Michelle Age: 32 yrs Sex: Female : 1985 Arrival Date: 02/25/2018 Time: 15:09 Bed 12 Private MD: None, None Diagnosis: Spontaneous Presentation: 02/25 15:14 Presenting complaint: Patient states: Here for HCG recheck. Transition of care: patient aj was not received from another setting of care. Onset of symptoms was February 23, 2018. Risk Assessment: Do you want to hurt yourself or someone else? Patient reports no desire to harm self or others. Initial Sepsis Screen: Does the patient meet any 2 criteria? No. Patient's initial sepsis screen is negative. Does the patient have a suspected source of infection? No. Patient's initial sepsis screen is negative. Care prior to arrival: None. 15:14 Method Of Arrival: Ambulatory aj 15:14 Acuity: DESIRAE 4 aj Triage Assessment: 15:15 General: Appears in no apparent distress. comfortable, Behavior is calm, cooperative, aj appropriate for age. Pain: Denies pain. Neuro: Level of Consciousness is awake, alert, obeys commands, Oriented to person, place, time, situation, Appropriate for age. Respiratory: Airway is patent Respiratory effort is even, unlabored, Respiratory pattern is regular, symmetrical. GI:. : Reports vaginal bleeding that is. Derm: Skin is intact, is healthy with good turgor, Skin is pink, warm \T\ dry. normal. 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 - Social history:: Smoking status: Patient/guardian denies using tobacco. - Ebola Screening: : Patient negative for fever greater than or equal to 101.5 degrees Fahrenheit, and additional compatible Ebola Virus Disease symptoms Patient denies exposure to infectious person Patient denies travel to an Ebola-affected area in the 21 days before illness onset No symptoms or risks identified at this time. Screenin:41 Abuse screen: Denies threats or abuse. Nutritional screening: No deficits noted. rk2 Tuberculosis screening: No symptoms or risk factors identified. Fall Risk None identified. Assessment: 15:41 General: Appears in no apparent distress. well groomed, well developed, well nourished, rk2 Behavior is calm, cooperative, appropriate for age. Neuro: Level of Consciousness is alert, obeys commands, Oriented to person, place, time, situation. Respiratory: Airway is patent Respiratory effort is even, unlabored, Respiratory pattern is regular, symmetrical. Derm: Skin is pink, warm \T\ dry. Vital Signs: 15:15 BP 133 / 71; Pulse 86; Resp 19; Temp 97.9; Pulse Ox 100% on R/A; Weight 68.04 kg; aj Height 5 ft. 1 in. (154.94 cm); Pain 0/10; 16:53 BP 118 / 72; Pulse 79; Resp 18; rk2 15:15 Body Mass Index 28.34 (68.04 kg, 154.94 cm) aj ED Course: 15:09 Patient arrived in ED. sb2 15:10 None, None is Private Physician. sb2 15:14 Triage completed. aj 15:15 Arm band placed on right wrist. Patient placed in waiting room, Patient notified of wait time. Labs ordered per protocol. Drawn by ED staff. 15:29 Josselyn Sims FNP-C [facility]. snw 15:29 Joseph Jha MD is Attending Physician. snw 15:40 Conchita Nesbitt RN is Primary Nurse. rk2 15:41 Patient has correct armband on for positive identification. Bed in low position. Call rk2 light in reach. 16:54 No provider procedures requiring assistance completed. Patient did not have IV access rk2 during this emergency room visit. Administered Medications: No medications were administered Outcome: 16:39 Discharge ordered by . snw 16:54 Discharged to home ambulatory. rk2 16:54 Condition: good 16:54 Discharge instructions given to patient, Prescriptions given X 1. 16:54 Patient left the ED. rk2 Signatures: Chandni Torres, RN RN Josselyn Baez FNP-C SPINDLE SANDER-Csnw Conchita Nesbitt RN RN rk2 Charlotte Baumann sb2
--- NOTE | 2018-02-25 16:40 | EDPHYS ---
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 - Social history:: Smoking status: Patient/guardian denies using tobacco. - Ebola Screening: : Patient negative for fever greater than or equal to 101.5 degrees Fahrenheit, and additional compatible Ebola Virus Disease symptoms Patient denies exposure to infectious person Patient denies travel to an Ebola-affected area in the 21 days before illness onset No symptoms or risks identified at this time. Vital Signs: 15:15 BP 133 / 71; Pulse 86; Resp 19; Temp 97.9; Pulse Ox 100% on R/A; Weight 68.04 kg; aj Height 5 ft. 1 in. (154.94 cm); Pain 0/10; 16:53 BP 118 / 72; Pulse 79; Resp 18; rk2 15:15 Body Mass Index 28.34 (68.04 kg, 154.94 cm) aj MDM: 15:30 Patient medically screened. snw 02/25 15:16 Order name: HCG-Quantitative; Complete Time: 16:37 aj Administered Medications: No medications were administered Disposition: 02/25/18 16:39 Discharged to Home. Impression: Spontaneous . - Condition is Stable. - Discharge Instructions: Miscarriage. - Prescriptions for Vitamin 27- 0.8 mg Oral Tablet - take 1 tablet by ORAL route once daily; 60 tablet. - Medication Reconciliation Form, Thank You Letter, Antibiotic Education, Prescription Opioid Use form. - Follow up: Private Physician; When: 1 - 2 days; Reason: Recheck today's complaints, Continuance of care, Re-evaluation by your physician. Follow up: Emergency Department; When: As needed; Reason: Worsening of condition. - Notes: Return to emergency room in 2-3 days for repeat Quantitative Hcg Addendum: 03/15/2018 02:09 Addendum: Pt here for reassessment of threatened ab. Encouraged to come today for s nw repeat QHcg. Pt states not feeling much different. No severe bleeding. Will be following up with hardware developer. Rh +. Skin w/d, pt alert and OX3, Heart with rrr without murmur. Abd soft, nt, nd. Extremities with +2 peripheral pulses. VSS.. 03/17/2018 08:25 Co-signature as Attending Physician, Joseph Jha MD I agree with the assessment and c simpson plan of care. Signatures: Dispatcher [employer] EDChandni Steinberg, RN RN Joseph Palmer MD MD cha Therrien, Shelly, LASER BEAM COLOR SCANNER OPERATOR-C LASER BEAM COLOR SCANNER OPERATOR-Csnw Conchita Nesbitt, RN RN rk2 Corrections: (The following items were deleted from the chart) 02/25 16:54 16:39 02/25/2018 16:39 Discharged to Home. Impression: Spontaneous . Condition rk2 is Stable. Forms are Medication Reconciliation Form, Thank You Letter, Antibiotic Education, Prescription Opioid Use. Follow up: Private Physician; When: 1 - 2 days; Reason: Recheck today's complaints, Continuance of care, Re-evaluation by your physician. Follow up: Emergency Department; When: As needed; Reason: Worsening of condition. snw
== END 2018-02-25 16:54 | disposition home or self-care (01) ==
LOC: ER 15:08
DX: O03.9 Complete or unspecified spontaneous abortion without complication (principal); Z88.1 Allergy status to other antibiotic agents; Z88.2 Allergy status to sulfonamides; J45.909 Unspecified asthma, uncomplicated
CPT/HCPCS: 36415; 84702; 99283

== ENCOUNTER 2018-02-28 15:53 | Emergency (ER) | payer SELFPAY ==
--- NOTE | 2018-02-28 19:21 | EDPHYS ---
Physician Documentation [facility] Name: Duncan Michelle Age: 32 yrs Sex: Female : 1985 Arrival Date: 02/28/2018 Time: 15:54 Bed 23 Private MD: None, None ED Physician Shree Freemdan HPI: 02/28 19:21 This 32 yrs old Female presents to ER via Ambulatory with complaints of HCG jr8 Recheck. 19:21 The patient presents to the emergency department with vaginal bleeding. The patient has jr8 not experienced similar symptoms in the past. The patient has not recently seen a physician. Patient came to ED for HCG recheck. Had labs and imaging the other day showing no gestational sac and low HCG. Had came back 48 hours later for another HCG check which showed a downward trend. Came back to day for another HCG check . 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 - Social history:: Smoking status: Patient/guardian denies using tobacco. - Ebola Screening: : No symptoms or risks identified at this time. ROS: 19:21 Eyes: Negative for injury, pain, redness, and discharge, ENT: Negative for injury, jr8 pain, and discharge, Neck: Negative for injury, pain, and swelling, Cardiovascular: Negative for chest pain, palpitations, and edema, Respiratory: Negative for shortness of breath, cough, wheezing, and pleuritic chest pain, Abdomen/GI: Negative for abdominal pain, nausea, vomiting, diarrhea, and constipation, Back: Negative for injury and pain, MS/Extremity: Negative for injury and deformity, Skin: Negative for injury, rash, and discoloration, Neuro: Negative for headache, weakness, numbness, tingling, and seizure. 19:21 : Positive for vaginal bleeding. Exam: 19:21 Eyes: Pupils equal round and reactive to light, extra-ocular motions intact. Lids and jr8 lashes normal. Conjunctiva and sclera are non-icteric and not injected. Cornea within normal limits. Periorbital areas with no swelling, redness, or edema. ENT: Nares patent. No nasal discharge, no septal abnormalities noted. Tympanic membranes are normal and external auditory canals are clear. Oropharynx with no redness, swelling, or masses, exudates, or evidence of obstruction, uvula midline. Mucous membranes moist. Neck: Trachea midline, no thyromegaly or masses palpated, and no cervical lymphadenopathy. Supple, full range of motion without nuchal rigidity, or vertebral point tenderness. No Meningismus. Cardiovascular: Regular rate and rhythm with a normal S1 and S2. No gallops, murmurs, or rubs. Normal PMI, no JVD. No pulse deficits. Respiratory: Lungs have equal breath sounds bilaterally, clear to auscultation and percussion. No rales, rhonchi or wheezes noted. No increased work of breathing, no retractions or nasal flaring. Abdomen/GI: Soft, non-tender, with normal bowel sounds. No distension or tympany. No guarding or rebound. No evidence of tenderness throughout. Back: No spinal tenderness. No costovertebral tenderness. Full range of motion. Skin: Warm, dry with normal turgor. Normal color with no rashes, no lesions, and no evidence of cellulitis. MS/ Extremity: Pulses equal, no cyanosis. Neurovascular intact. Full, normal range of motion. Neuro: Awake and alert, GCS 15, oriented to person, place, time, and situation. Cranial nerves II-XII grossly intact. Motor strength 5/5 in all extremities. Sensory grossly intact. Cerebellar exam normal. Normal gait. Vital Signs: 16:14 BP 116 / 74; Pulse 81; Resp 15; Temp 97.8(TE); Pulse Ox 97% on R/A; Weight 68.04 kg lk1 (R); Height 5 ft. 1 in. (154.94 cm) (R); Pain 0/10; 19:29 BP 122 / 90; Pulse 86; Resp 16; Pulse Ox 98% ; tl3 16:14 Body Mass Index 28.34 (68.04 kg, 154.94 cm) lk1 MDM: 18:00 Patient medically screened. jr8 19:18 Data reviewed: vital signs, nurses notes, lab test result(s), and as a result, I will 8 discharge patient. Data reviewed: old medical records. Data interpreted: Pulse oximetry: on room air is 97 %. Interpretation: normal. Counseling: I had a detailed discussion with the patient and/or guardian regarding: the historical points, exam findings, and any diagnostic results supporting the discharge/admit diagnosis, lab results, the need for outpatient follow up, an OB/Gyne specialist, to return to the emergency department if symptoms worsen or persist or if there are any questions or concerns that arise at home. ED course: Discussed with patient that her HCG is still trending downward. That she needs another in 1 week along with US. Patient good with this and will follow up. . 02/28 18:00 Order name: HCG-Quantitative; Complete Time: 19:06 jr8 Administered Medications: No medications were administered Disposition: 02/28/18 19:20 Discharged to Home. Impression: Spontaneous . - Condition is Stable. - Discharge Instructions: Miscarriage. - Medication Reconciliation Form, Thank You Letter, Antibiotic Education, Prescription Opioid Use form. - Follow up: Private Physician; When: 1 week; Reason: Recheck today's complaints, Continuance of care, Re-evaluation by your physician. - Problem is new. - Symptoms have improved. Addendum: 03/07/2018 11:27 Co-signature as Attending Physician, Shree Freedman MD I agree with the assessment and k dr plan of care. Signatures: Dispatcher [employer] EDOK Shree Freedman MD MD kdr Roszak, Josh, PA PA jr8 Nadiya Zamarripa, RN RN lk1 Shirin Morales RN RN tl3 Corrections: (The following items were deleted from the chart) 02/28 19:31 19:20 02/28/2018 19:20 Discharged to Home. Impression: Spontaneous . Condition tl3 is Stable. Forms are Medication Reconciliation Form, Thank You Letter, Antibiotic Education, Prescription Opioid Use. Follow up: Private Physician; When: 1 week; Reason: Recheck today's complaints, Continuance of care, Re-evaluation by your physician. Problem is new. Symptoms have improved. jr8
--- NOTE | 2018-02-28 19:21 | ER ---
Nurse's Notes [facility] Name: Duncan Michelle Age: 32 yrs Sex: Female : 1985 Arrival Date: 02/28/2018 Time: 15:54 Bed 23 Private MD: None, None Diagnosis: Spontaneous Presentation: 02/28 16:13 Presenting complaint: Patient states: "I need to have my HCG levels rechecked.". lk1 Transition of care: patient was not received from another setting of care. Onset of symptoms is unknown. Risk Assessment: Do you want to hurt yourself or someone else? Patient reports no desire to harm self or others. Initial Sepsis Screen: Does the patient meet any 2 criteria? No. Patient's initial sepsis screen is negative. Does the patient have a suspected source of infection? No. Patient's initial sepsis screen is negative. Care prior to arrival: None. 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 - Social history:: Smoking status: Patient/guardian denies using tobacco. - Ebola Screening: : No symptoms or risks identified at this time. Screenin:50 Abuse screen: Denies threats or abuse. Nutritional screening: No deficits noted. tl3 Tuberculosis screening: No symptoms or risk factors identified. Fall Risk None identified. Assessment: 17:50 General: Appears in no apparent distress. comfortable, well groomed, well developed, tl3 well nourished, Behavior is calm, cooperative, appropriate for age. Pain: Complains of pain in abdomen. Neuro: Level of Consciousness is awake, alert, obeys commands, Oriented to person, place, time, situation, Appropriate for age. Cardiovascular: Patient's skin is warm and dry. Respiratory: Breath sounds are clear bilaterally. GI: Abdomen is round. : No signs and/or symptoms were reported regarding the genitourinary system. EENT: No signs and/or symptoms were reported regarding the EENT system. Derm: No signs and/or symptoms reported regarding the dermatologic system. Musculoskeletal: No signs and/or symptoms reported regarding the musculoskeletal system. 17:53 : Reports here to see if Hcg levels have dropped. tl3 19:29 Reassessment: Patient appears in no apparent distress at this time. No changes from tl3 previously documented assessment. Patient and/or family updated on plan of care and expected duration. Pain level reassessed. Patient is alert, oriented x 3, equal unlabored respirations, skin warm/dry/pink. Vital Signs: 16:14 BP 116 / 74; Pulse 81; Resp 15; Temp 97.8(TE); Pulse Ox 97% on R/A; Weight 68.04 kg lk1 (R); Height 5 ft. 1 in. (154.94 cm) (R); Pain 0/10; 19:29 BP 122 / 90; Pulse 86; Resp 16; Pulse Ox 98% ; tl3 16:14 Body Mass Index 28.34 (68.04 kg, 154.94 cm) lk1 ED Course: 15:54 Patient arrived in ED. mr 15:55 None, None is Private Physician. mr 16:14 Triage completed. lk1 16:18 Arm band placed on right wrist. lk1 17:46 Shirin Morales, RN is Primary Nurse. tl3 17:50 Patient has correct armband on for positive identification. tl3 17:50 No provider procedures requiring assistance completed. Patient did not have IV access tl3 during this emergency room visit. 17:52 Don Gant PA is [facility]. jr8 17:52 Shree Freedman MD is Attending Physician. jr8 Administered Medications: No medications were administered Outcome: 19:20 Discharge ordered by . jr8 19:29 Discharged to home ambulatory. tl3 19:29 Condition: good 19:29 Discharge instructions given to patient, Instructed on discharge instructions, follow up and referral plans. medication usage, Demonstrated understanding of instructions, follow-up care. 19:31 Patient left the ED. tl3 Signatures: Anastasia Bailey mr Don Gant PA PA jr8 Nadiya Zamarripa RN RN lk1 Shirin Morales, JOVANNY RN tl3
== END 2018-02-28 19:31 | disposition home or self-care (01) ==
LOC: ER 15:53
DX: O03.9 Complete or unspecified spontaneous abortion without complication (principal); Z88.1 Allergy status to other antibiotic agents; Z88.2 Allergy status to sulfonamides; J45.909 Unspecified asthma, uncomplicated
CPT/HCPCS: 36415; 84702; 99281

== ENCOUNTER 2018-03-16 13:20 | Emergency (ER) | payer SELFPAY ==
[2018-03-16 14:05] LABS: Urine Blood 1+ (NEG); Urine Glucose NEGATIVE (NEG); Urine Protein 1+ (NEG); Urine pH 5.5 (5.0-7.0)
--- NOTE | 2018-03-16 14:44 | EDPHYS ---
Physician Documentation [facility] Name: Duncan Michelle Age: 32 yrs Sex: Female : 1985 Arrival Date: 03/16/2018 Time: 13:22 Bed 28 Private MD: ED Physician Joseph Jha HPI: 03/16 14:37 This 32 yrs old Female presents to ER via Ambulatory with complaints of Foot hector Injury, Pelvic Pain, Vaginal Bleeding. 14:37 The patient presents with an abrasion, a contusion, decreased range of motion. The hector complaints affect the right foot. Context: The problem was sustained at home, resulted from a heavy object falling. Onset: The symptoms/episode began/occurred just prior to arrival. Modifying factors: The symptoms are alleviated by elevation of extremity, the symptoms are aggravated by weight bearing, wearing shoes. Associated signs and symptoms: The patient has no apparent associated signs or symptoms. Associated signs and symptoms: The patient has no apparent associated signs or symptoms. Severity of symptoms: At their worst the symptoms were mild, in the emergency department the symptoms are unchanged. The patient has not experienced similar symptoms in the past. 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 - Social history:: Smoking status: Patient/guardian denies using tobacco. - Ebola Screening: : No symptoms or risks identified at this time. - Family history:: not pertinent. ROS: 14:37 Constitutional: Negative for fever, chills, and weight loss, Eyes: Negative for injury, hector pain, redness, and discharge, ENT: Negative for injury, pain, and discharge, Neck: Negative for injury, pain, and swelling, Cardiovascular: Negative for chest pain, palpitations, and edema, Respiratory: Negative for shortness of breath, cough, wheezing, and pleuritic chest pain, Abdomen/GI: Negative for abdominal pain, nausea, vomiting, diarrhea, and constipation, Back: Negative for injury and pain, : Negative for injury, bleeding, discharge, and swelling, Skin: Negative for injury, rash, and discoloration, Neuro: Negative for headache, weakness, numbness, tingling, and seizure, Psych: Negative for depression, anxiety, suicide ideation, homicidal ideation, and hallucinations, Allergy/Immunology: Negative for hives, rash, and allergies, Endocrine: Negative for neck swelling, polydipsia, polyuria, polyphagia, and marked weight changes, Hematologic/Lymphatic: Negative for swollen nodes, abnormal bleeding, and unusual bruising. 14:37 MS/extremity: Positive for abrasion, contusion, pain, of the dorsum of right foot. Exam: 14:37 Constitutional: This is a well developed, well nourished patient who is awake, alert, hector and in no acute distress. Head/Face: Normocephalic, atraumatic. Eyes: Pupils equal round and reactive to light, extra-ocular motions intact. Lids and lashes normal. Conjunctiva and sclera are non-icteric and not injected. Cornea within normal limits. Periorbital areas with no swelling, redness, or edema. ENT: Nares patent. No nasal discharge, no septal abnormalities noted. Tympanic membranes are normal and external auditory canals are clear. Oropharynx with no redness, swelling, or masses, exudates, or evidence of obstruction, uvula midline. Mucous membranes moist. Neck: Trachea midline, no thyromegaly or masses palpated, and no cervical lymphadenopathy. Supple, full range of motion without nuchal rigidity, or vertebral point tenderness. No Meningismus. Chest/axilla: Normal chest wall appearance and motion. Nontender with no deformity. No lesions are appreciated. Cardiovascular: Regular rate and rhythm with a normal S1 and S2. No gallops, murmurs, or rubs. Normal PMI, no JVD. No pulse deficits. Respiratory: Lungs have equal breath sounds bilaterally, clear to auscultation and percussion. No rales, rhonchi or wheezes noted. No increased work of breathing, no retractions or nasal flaring. Abdomen/GI: Soft, non-tender, with normal bowel sounds. No distension or tympany. No guarding or rebound. No evidence of tenderness throughout. Back: No spinal tenderness. No costovertebral tenderness. Full range of motion. Female : Normal external genitalia. Skin: Warm, dry with normal turgor. Normal color with no rashes, no lesions, and no evidence of cellulitis. Neuro: Awake and alert, GCS 15, oriented to person, place, time, and situation. Cranial nerves II-XII grossly intact. Motor strength 5/5 in all extremities. Sensory grossly intact. Cerebellar exam normal. Normal gait. Psych: Awake, alert, with orientation to person, place and time. Behavior, mood, and affect are within normal limits. 14:37 Musculoskeletal/extremity: DVT Exam: No signs of deep vein thrombosis. no swelling, negative Homans' sign noted on exam, no appreciated bluish discoloration, no erythema, no increased warmth, pain, tenderness, of the right foot. Vital Signs: 13:26 BP 123 / 75; Pulse 101; Resp 18; Temp 98.1; Pulse Ox 97% ; Weight 68.04 kg; Height 5 sv ft. 1 in. (154.94 cm); Pain 5/10; 14:43 BP 123 / 81; Pulse 98; Resp 16; Pulse Ox 99% on R/A; mb3 13:26 Body Mass Index 28.34 (68.04 kg, 154.94 cm) sv MDM: 13:32 Patient medically screened. hector 13:32 Patient medically screened. [facility] 03/16 13:53 Order name: Urine Dipstick--Ancillary (enter results); Complete Time: 14:18 03/16 14:46 Order name: Urine --Ancillary (enter results) 03/16 14:18 Order name: Urine Test (obtain specimen); Complete Time: 14:25 [facility] 03/16 14:18 Order name: Foot Right 3 View XRAY [facility] Administered Medications: No medications were administered Point of Care Testing: Urine : 14:25 hCG Reading: Negative; Control Reading: Positive; mb3 Disposition: 03/16/18 14:43 Discharged to Home. Impression: Contusion of right foot, Abrasion, right foot. - Condition is Stable. - Discharge Instructions: Foot Contusion, Dysmenorrhea, Foot Contusion, [id number], Dysmenorrhea, [id number]. - Medication Reconciliation Form, Thank You Letter, Antibiotic Education, Prescription Opioid Use form. - Follow up: Private Physician; When: 2 - 3 days; Reason: Recheck today's complaints, Continuance of care, Re-evaluation by your physician. - Problem is new. - Symptoms have improved. Signatures: Dispatcher [employer] Libertad Petersen, RN RN Joseph Escobar MD MD cha Barnett, Mark RN RN mb3 Corrections: (The following items were deleted from the chart) 15:42 14:43 03/16/2018 14:43 Discharged to Home. Impression: Contusion of right foot; mb3 Abrasion, right foot. Condition is Stable. Forms are Medication Reconciliation Form, Thank You Letter, Antibiotic Education, Prescription Opioid Use. Follow up: Private Physician; When: 2 - 3 days; Reason: Recheck today's complaints, Continuance of care, Re-evaluation by your physician. Problem is new. Symptoms have improved. hector
--- NOTE | 2018-03-16 14:44 | ER ---
Nurse's Notes [facility] Name: Duncan Michelle Age: 32 yrs Sex: Female : 1985 Arrival Date: 03/16/2018 Time: 13:22 Bed 28 Private MD: Diagnosis: Contusion of right foot;Abrasion, right foot Presentation: 03/16 13:24 Presenting complaint: Patient states: had a tomato slicer fall on her right foot that sv occurred today. Pt also reports vaginal spotting, n/v and suprapubic cramping that started a couple of weeks ago. Transition of care: patient was not received from another setting of care. Onset of symptoms was March 16, 2018. Care prior to arrival: None. 13:24 Method Of Arrival: Ambulatory sv 13:24 Acuity: DESIRAE 3 sv 14:30 Risk Assessment: Do you want to hurt yourself or someone else? Patient reports no mb3 desire to harm self or others. Initial Sepsis Screen: Does the patient meet any 2 criteria? No. Patient's initial sepsis screen is negative. Does the patient have a suspected source of infection? No. Patient's initial sepsis screen is negative. 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 - Social history:: Smoking status: Patient/guardian denies using tobacco. - Ebola Screening: : No symptoms or risks identified at this time. - Family history:: not pertinent. Screenin:29 Abuse screen: Denies threats or abuse. Nutritional screening: No deficits noted. mb3 Tuberculosis screening: No symptoms or risk factors identified. Fall Risk None identified. Assessment: 14:25 General: Appears in no apparent distress. comfortable, Behavior is calm, cooperative, mb3 appropriate for age. Pain: Complains of pain in dorsum of right foot Pain does not radiate. Neuro: No deficits noted. Cardiovascular: No deficits noted. Respiratory: No deficits noted. GI: Abdomen is round obese, Bowel sounds present X 4 quads. Abd is soft and non tender Reports lower abdominal pain, cramping. : No signs and/or symptoms were reported regarding the genitourinary system. EENT: No signs and/or symptoms were reported regarding the EENT system. Musculoskeletal: Circulation, motion, and sensation intact. Capillary refill < 3 seconds, Range of motion: intact in all extremities. Injury Description: Bruise sustained to dorsum of right foot. 14:44 Reassessment: No changes from previously documented assessment. Patient and/or family mb3 updated on plan of care and expected duration. Pain level reassessed. Patient is alert, oriented x 3, equal unlabored respirations, skin warm/dry/pink. Vital Signs: 13:26 BP 123 / 75; Pulse 101; Resp 18; Temp 98.1; Pulse Ox 97% ; Weight 68.04 kg; Height 5 sv ft. 1 in. (154.94 cm); Pain 5/10; 14:43 BP 123 / 81; Pulse 98; Resp 16; Pulse Ox 99% on R/A; mb3 13:26 Body Mass Index 28.34 (68.04 kg, 154.94 cm) sv ED Course: 13:22 Patient arrived in ED. sb2 13:26 Triage completed. sv 13:27 Arm band placed on right wrist. sv 13:32 Joseph Jha MD is Attending Physician. hector 13:35 Robson Alegria RN is Primary Nurse. mb3 14:30 No provider procedures requiring assistance completed. Patient did not have IV access mb3 during this emergency room visit. 14:31 Patient has correct armband on for positive identification. mb3 15:22 Radiology exam delayed due to lab results not completed at this time. (BUN/Creatinine) cw1 IV insertion attempt and/or patient not having appropriate IV at this time. 15:33 Foot Right 3 View XRAY In Process Unspecified. EDMS Administered Medications: No medications were administered Point of Care Testing: Urine : 14:25 hCG Reading: Negative; Control Reading: Positive; mb3 Outcome: 14:43 Discharge ordered by . hector 15:41 Discharged to home ambulatory. mb3 15:41 Condition: stable 15:41 Discharge instructions given to patient, Instructed on discharge instructions, follow up and referral plans. Demonstrated understanding of instructions, follow-up care. 15:42 Patient left the ED. mb3 Signatures: Dispatcher [facility] EDMS Libertad Dubois RN RN Joseph Escobar MD MD cha Woodley, Siena cw1 Charlotte Baumann sb2 Robson Alegria RN RN mb3
--- NOTE | 2018-03-16 17:06 | RAD REPORT ---
EXAM DESCRIPTION: RAD - Foot Right 3 View - 03/16/2018 3:33 pm CLINICAL HISTORY: Foot pain COMPARISON: None. FINDINGS: No fracture, dislocation or periosteal reaction. No acute bone or joint finding. Small naldo ntar and Achilles spurs are present. No air or foreign body in the soft tissues. IMPRESSION: Negative right foot examination for acute finding.
== END 2018-03-16 15:42 | disposition home or self-care (01) ==
LOC: ER 13:20
DX: S90.811A Abrasion, right foot, initial encounter (principal); W22.8XXA Striking against or struck by other objects, initial encounter; Y93.9 Activity, unspecified; Y92.009 Unspecified place in unspecified non-institutional (private) residence as the place of occurrence of the external cause; Z88.1 Allergy status to other antibiotic agents; Z88.2 Allergy status to sulfonamides
CPT/HCPCS: 81003; 81025; 99283